=== PATIENT | male | born 1965 ===

== ENCOUNTER 2021-05-23 13:01 | Inpatient (IN) | payer MEDICAID, OTHER ==
[~2021-05-23] VITALS: Ht 172.7 cm; Wt 110.0 kg
[2021-05-23 14:18] LABS: Basophils # (auto) 0.1 10 ^3/uL (0-0.2); Basophils % (auto) 0.7 % (0.0-2.0); Eosinophils # (auto) 0.1 10 ^3/uL (0-0.8); Eosinophils % (auto) 0.9 % (0.0-7.0); Hematocrit 43.2 % (41.0-53.0); Hemoglobin 14.8 g/dL (13.5-17.5); Lymphocytes # (auto) 2.2 10 ^3/uL (0.4-5.4); Lymphocytes % (auto) 28.9 % (10.0-50.0); Mean Corpuscular Hemoglobin 29.7 pg (28.0-32.0); Mean Corpuscular Hgb Conc. 34.4 g/dL (32.0-36.0); Mean Corpuscular Volume 86.5 fL (80.0-100.0); Monocytes # (auto) 1.3 10 ^3/uL (0-1.3); Monocytes % (auto) 16.7 % (0.0-12.0); Neutrophils % (auto) 52.8 % (37.0-80.0); Nucleated Red Blood Cells % 0.1 %; Red Blood Cells 4.99 10^6/uL (4.5-5.90); Red Cell Distribution Width 12.7 % (11.8-14.3); White Blood Cell 7.5 10^3/uL (4.4-10.8)
[2021-05-23 14:37] LABS: Albumin 3.9 g/dL (3.4-5.0); Anion Gap 8 (5-15); Blood Urea Nitrogen 18 mg/dL (7-18); Calcium 9.6 mg/dL (8.5-10.1); Carbon Dioxide 24 mmol/L (21-32); Chloride 100 mmol/L (98-107); Glucose 214 mg/dL (74-106); Magnesium 2.5 mg/dL (1.6-2.6); Potassium 3.9 mmol/L (3.5-5.1); Sodium 132 mmol/L (136-145)
[2021-05-23 14:44] LABS: Alanine Aminotransferase 82 U/L (16-61); Alkaline Phosphatase 66 U/L (45-117); Aspartate Aminotransferase 77 U/L (15-37); BUN/Creatinine Ratio 12.6; Bilirubin, Total 0.3 mg/dL (0.2-1.0); GFR African American 66 mL/min; GFR Non-African American 54 mL/min; Total Protein 8.8 g/dL (6.4-8.2)
[2021-05-23] MEDS ORDERED: ONDANSETRON HCL 4 MG/2 ML VIAL IV PRN (17:30)
[2021-05-23] MEDS ORDERED: LORazepam 0.5 MG TAB PO PRN (17:30)
[2021-05-23] MEDS ORDERED: ACETAMINOPHEN 500 MG TAB PO PRN ×2 (17:30→19:00)
[2021-05-23] MEDS ORDERED: DOCUSATE CALCIUM 240 MG CAP PO PRN (17:30)
[2021-05-23] MEDS ORDERED: MORPHINE SULFATE INJECTION 2 MG/ML SYRG IV PRN ×2 (17:30)
[2021-05-23] MEDS ORDERED: LABETALOL HCL 5 MG/ML 4ML SYRINGE IV PRN (17:30)
[2021-05-23] MEDS ORDERED: NITROGLYCERIN 0.4 MG SL TAB SL PRN (17:30)
[2021-05-23] MEDS ORDERED: DEXTROSE (50%) 50ML SYRG IV PRN (17:30)
[2021-05-23] MEDS ORDERED: SODIUM CHLORIDE 0.9% 1,000 ML IV ONE (17:30)
[2021-05-23] MEDS: SODIUM CHLORIDE 0.9% 1,000 ML IV SCH (19:51)
[2021-05-23] MEDS: InsuLIN REG 1unit/0.01ml Soln (100units/ml) SC SCH ×2 (20:00→22:36)
[2021-05-23 20:04] LABS: Thyroid Stimulating Hormone 1.62 uIU/mL (0.358-3.74)
[2021-05-23] MEDS: ACCU-CHEK COMFORT CURVE STRIP VI SCH ×2 (20:09→22:36)
[2021-05-23 21:10] LABS: Urine WBC None Seen /hpf (0 - 3)
[2021-05-23 21:28] LABS: Urine Bacteria NONE SEEN /hpf (None Seen); Urine Blood Negative /uL (Negative); Urine Hyaline Cast FEW /lpf (0 - 2); Urine Mucus FEW (None Seen); Urine Specific Gravity 1.009 (1.001-1.035)
[2021-05-23 22:30] VITALS: BP 159/80
[2021-05-23] MEDS: ATORVASTATIN 20 MG TAB PO SCH (22:35)
[2021-05-23] MEDS: INSULIN LANTUS (GLARGINE) 1 /0.01ml (100units/ml) SC SCH (22:36)
[2021-05-23] MEDS: BUDESONIDE (INHALATION) 180 MCG IH IN SCH (22:54)
[2021-05-23] MEDS ORDERED: LOSA-69 PO (23:12)
[2021-05-23] MEDS ORDERED: METF-370 PO (23:12)
[2021-05-23] MEDS ORDERED: HYDR25TA5 PO (23:12)
[2021-05-23] MEDS ORDERED: AMLO-489 PO (23:12)
[2021-05-23] MEDS ORDERED: GEMF600T PO (23:12)
[2021-05-23] MEDS ORDERED: GLIM2TAB PO (23:12)
[2021-05-24] MEDS: InsuLIN REG 1unit/0.01ml Soln (100units/ml) SC SCH ×6 (04:10→22:24)
[2021-05-24] MEDS: ACCU-CHEK COMFORT CURVE STRIP VI SCH ×6 (04:10→22:24)
[2021-05-24 04:30] VITALS: BP 139/63
[2021-05-24] MEDS: SODIUM CHLORIDE 0.9% 1,000 ML IV SCH ×2 (05:24→20:12)
[2021-05-24] MEDS ORDERED: HYDROcodone-ACET 5/325MG TAB PO PRN (05:45)
[2021-05-24 05:54] LABS: Basophils # (auto) 0 10 ^3/uL (0-0.2); Basophils % (auto) 0.5 % (0.0-2.0); Eosinophils # (auto) 0.1 10 ^3/uL (0-0.8); Eosinophils % (auto) 1.1 % (0.0-7.0); Hematocrit 38.4 % (41.0-53.0); Hemoglobin 13.6 g/dL (13.5-17.5); Lymphocytes # (auto) 1.9 10 ^3/uL (0.4-5.4); Lymphocytes % (auto) 26.6 % (10.0-50.0); Mean Corpuscular Hemoglobin 30.4 pg (28.0-32.0); Mean Corpuscular Hgb Conc. 35.5 g/dL (32.0-36.0); Mean Corpuscular Volume 85.7 fL (80.0-100.0); Monocytes # (auto) 1.1 10 ^3/uL (0-1.3); Monocytes % (auto) 14.6 % (0.0-12.0); Neutrophils # (auto) 4.2 10 ^3/uL (1.6-8.6); Neutrophils % (auto) 57.2 % (37.0-80.0); Nucleated Red Blood Cells % 0.1 %; Red Blood Cells 4.48 10^6/uL (4.5-5.90); Red Cell Distribution Width 12.4 % (11.8-14.3); White Blood Cell 7.3 10^3/uL (4.4-10.8)
[2021-05-24 05:55] LABS: INR 1.1 (0.9-1.15)
[2021-05-24 05:57] LABS: Albumin 3.3 g/dL (3.4-5.0); Calcium 8.6 mg/dL (8.5-10.1); Chloride 103 mmol/L (98-107); Potassium 3.7 mmol/L (3.5-5.1); Sodium 135 mmol/L (136-145)
[2021-05-24 06:00] LABS: Alanine Aminotransferase 80 U/L (16-61); Anion Gap 8 (5-15); Aspartate Aminotransferase 67 U/L (15-37); BUN/Creatinine Ratio 14.7; Blood Urea Nitrogen 15 mg/dL (7-18); Carbon Dioxide 24 mmol/L (21-32); GFR African American 97 mL/min; GFR Non-African American 80 mL/min; Glucose 169 mg/dL (74-106)
[2021-05-24 06:05] LABS: Alkaline Phosphatase 58 U/L (45-117); Bilirubin, Total 0.2 mg/dL (0.2-1.0); Total Protein 7.6 g/dL (6.4-8.2)
[2021-05-24] MEDS: BUDESONIDE (INHALATION) 180 MCG IH IN SCH ×2 (06:39→22:26)
[2021-05-24] MEDS: ALBUTEROL SULF HFA 90MCG INH 200DOSE IN PRN ×2 (06:39→22:26)
[2021-05-24] MEDS: AZITHROMYCIN 500MG/ 250ML 250 ML IV SCH (08:55)
[2021-05-24] MEDS: ZINC SULFATE 220mg CAP or TAB PO SCH (08:56)
[2021-05-24] MEDS: PANTOPRAZOLE 40 MG TAB PO SCH (08:56)
[2021-05-24] MEDS: METOPROLOL SUCCINATE XL 50 MG TAB PO SCH (08:57)
[2021-05-24] MEDS: ASCORBIC ACID 1,000 MG TAB PO SCH (08:57)
[2021-05-24] MEDS: CHOLECALCIFEROL (VITD3) 2,000 UNIT CAP/TAB PO SCH (08:57)
[2021-05-24 09:00] VITALS: BP 124/68
[2021-05-24] MEDS: ENOXAPARIN SOD 40 MG/0.4 ML SYRINGE SC SCH (10:20)
[2021-05-24 13:00] VITALS: BP 144/72
[2021-05-24 17:00] VITALS: BP 144/72
[2021-05-24 21:53] VITALS: BP 144/68
[2021-05-24] MEDS: ATORVASTATIN 20 MG TAB PO SCH (22:23)
[2021-05-24] MEDS: INSULIN LANTUS (GLARGINE) 1 /0.01ml (100units/ml) SC SCH (22:24)
[2021-05-25] MEDS: InsuLIN REG 1unit/0.01ml Soln (100units/ml) SC SCH ×6 (04:00→22:17)
[2021-05-25] MEDS: ACCU-CHEK COMFORT CURVE STRIP VI SCH ×6 (04:02→22:16)
[2021-05-25 05:39] VITALS: BP 132/78
[2021-05-25 06:07] LABS: Basophils # (auto) 0 10 ^3/uL (0-0.2); Basophils % (auto) 0.6 % (0.0-2.0); Eosinophils # (auto) 0.2 10 ^3/uL (0-0.8); Eosinophils % (auto) 2.7 % (0.0-7.0); Hematocrit 39.7 % (41.0-53.0); Hemoglobin 13.7 g/dL (13.5-17.5); Lymphocytes # (auto) 2.8 10 ^3/uL (0.4-5.4); Lymphocytes % (auto) 44.4 % (10.0-50.0); Mean Corpuscular Hemoglobin 29.5 pg (28.0-32.0); Mean Corpuscular Hgb Conc. 34.5 g/dL (32.0-36.0); Mean Corpuscular Volume 85.6 fL (80.0-100.0); Monocytes # (auto) 0.7 10 ^3/uL (0-1.3); Monocytes % (auto) 11.7 % (0.0-12.0); Neutrophils # (auto) 2.6 10 ^3/uL (1.6-8.6); Neutrophils % (auto) 40.6 % (37.0-80.0); Nucleated Red Blood Cells % 0.1 %; Red Blood Cells 4.64 10^6/uL (4.5-5.90); Red Cell Distribution Width 12.4 % (11.8-14.3); White Blood Cell 6.3 10^3/uL (4.4-10.8)
[2021-05-25 06:25] LABS: Potassium 3.6 mmol/L (3.5-5.1)
[2021-05-25] MEDS: BUDESONIDE (INHALATION) 180 MCG IH IN SCH ×2 (06:36→21:38)
[2021-05-25] MEDS: ALBUTEROL SULF HFA 90MCG INH 200DOSE IN PRN ×2 (06:36→21:38)
[2021-05-25] MEDS: SODIUM CHLORIDE 0.9% 1,000 ML IV SCH ×3 (08:10→10:07)
[2021-05-25] MEDS: AZITHROMYCIN 500MG/ 250ML 250 ML IV SCH (09:00)
[2021-05-25] MEDS: ZINC SULFATE 220mg CAP or TAB PO SCH (09:00)
[2021-05-25] MEDS: CHOLECALCIFEROL (VITD3) 2,000 UNIT CAP/TAB PO SCH (09:01)
[2021-05-25] MEDS: ASCORBIC ACID 1,000 MG TAB PO SCH (09:01)
[2021-05-25] MEDS: PANTOPRAZOLE 40 MG TAB PO SCH (09:01)
[2021-05-25] MEDS: ENOXAPARIN SOD 40 MG/0.4 ML SYRINGE SC SCH (09:02)
[2021-05-25] MEDS: METOPROLOL SUCCINATE XL 50 MG TAB PO SCH (10:08)
[2021-05-25 10:24] VITALS: BP 138/73
[2021-05-25 13:10] VITALS: BP 134/70
[2021-05-25] MEDS ORDERED: AMIODARONE HCL 150 MG in D5W 5% 100 ML IV ONE (16:45)
[2021-05-25] MEDS ORDERED: AMIODARONE 450mg/250ml AE 250 ML IV SCH ×4 (17:00→23:00)
[2021-05-25 17:33] LABS: BUN/Creatinine Ratio 13.5; Calcium 8.8 mg/dL (8.5-10.1); Magnesium 2.3 mg/dL (1.6-2.6); Potassium 4.1 mmol/L (3.5-5.1)
[2021-05-25 22:00] VITALS: BP_SYST 134; BP_SYST 148; BP_DIAS 65
[2021-05-25] MEDS: ATORVASTATIN 20 MG TAB PO SCH (22:13)
[2021-05-25] MEDS: INSULIN LANTUS (GLARGINE) 1 /0.01ml (100units/ml) SC SCH (22:16)
[2021-05-26] MEDS: InsuLIN REG 1unit/0.01ml Soln (100units/ml) SC SCH ×6 (04:00→23:58)
[2021-05-26] MEDS: ACCU-CHEK COMFORT CURVE STRIP VI SCH ×6 (04:10→23:58)
[2021-05-26 04:55] VITALS: BP 121/63
[2021-05-26 05:20] VITALS: BP 121/63
[2021-05-26] MEDS: ALBUTEROL SULF HFA 90MCG INH 200DOSE IN PRN ×2 (06:33→20:29)
[2021-05-26] MEDS: BUDESONIDE (INHALATION) 180 MCG IH IN SCH ×2 (06:33→20:29)
[2021-05-26] MEDS: AZITHROMYCIN 500MG/ 250ML 250 ML IV SCH (08:23)
[2021-05-26] MEDS: ZINC SULFATE 220mg CAP or TAB PO SCH (08:25)
[2021-05-26] MEDS: PANTOPRAZOLE 40 MG TAB PO SCH (08:25)
[2021-05-26] MEDS: METOPROLOL SUCCINATE XL 50 MG TAB PO SCH (08:26)
[2021-05-26] MEDS: CHOLECALCIFEROL (VITD3) 2,000 UNIT CAP/TAB PO SCH (08:27)
[2021-05-26] MEDS: ASCORBIC ACID 1,000 MG TAB PO SCH (08:27)
[2021-05-26] MEDS: ENOXAPARIN SOD 40 MG/0.4 ML SYRINGE SC SCH (08:28)
[2021-05-26 09:00] VITALS: BP 144/73
[2021-05-26 13:00] VITALS: BP 146/76
[2021-05-26 17:00] VITALS: BP 142/75
[2021-05-26] MEDS: ATORVASTATIN 20 MG TAB PO SCH (21:04)
[2021-05-26] MEDS: INSULIN LANTUS (GLARGINE) 1 /0.01ml (100units/ml) SC SCH (21:07)
[2021-05-26 22:00] VITALS: BP 148/65
[2021-05-27] MEDS: InsuLIN REG 1unit/0.01ml Soln (100units/ml) SC SCH ×5 (04:00→15:01)
[2021-05-27] MEDS: ACCU-CHEK COMFORT CURVE STRIP VI SCH ×5 (04:00→15:02)
[2021-05-27 05:32] VITALS: BP 128/70
[2021-05-27] MEDS: ALBUTEROL SULF HFA 90MCG INH 200DOSE IN PRN (06:34)
[2021-05-27] MEDS: BUDESONIDE (INHALATION) 180 MCG IH IN SCH (06:34)
[2021-05-27 09:00] VITALS: BP 150/78
[2021-05-27] MEDS: ZINC SULFATE 220mg CAP or TAB PO SCH (09:34)
[2021-05-27] MEDS: AZITHROMYCIN 500MG/ 250ML 250 ML IV SCH (09:34)
[2021-05-27] MEDS: PANTOPRAZOLE 40 MG TAB PO SCH (09:34)
[2021-05-27] MEDS: METOPROLOL SUCCINATE XL 50 MG TAB PO SCH (09:35)
[2021-05-27] MEDS: CHOLECALCIFEROL (VITD3) 2,000 UNIT CAP/TAB PO SCH (09:36)
[2021-05-27] MEDS: ENOXAPARIN SOD 40 MG/0.4 ML SYRINGE SC SCH (09:36)
[2021-05-27] MEDS: ASCORBIC ACID 1,000 MG TAB PO SCH (09:36)
[2021-05-27 13:00] VITALS: BP 150/70
[2021-05-27 16:51] VITALS: BP 121/67
[2021-05-27 16:53] VITALS: BP 130/74
[2021-05-27 16:59] VITALS: BP 132/77
== END 2021-05-27 18:00 | disposition home or self-care (01) | DRG 137 ==
LOC: EDBD 13:01 → ER 13:01 → TELE 17:44 → TELE-EAST 21:58
PROVIDERS: ADMIT Family Medicine; ATTEND Internal Medicine
DX: U07.1 COVID-19 (principal); N17.0 Acute kidney failure with tubular necrosis; E11.65 Type 2 diabetes mellitus with hyperglycemia; G89.29 Other chronic pain; I10 Essential (primary) hypertension
CPT/HCPCS: 36415; 71045; 71046; 73030; 80048; 80053; 81001; 82043; 82306; 82728; 82962; 83036; 83605; 83615; 83735; 83880; 84132; 84443; 84484; 85025; 85379; 85610; 86141; 87040; 87426; 93005; 93306; 94640; 96361; 96374; G0378; J1815; J3490; J7060

== ENCOUNTER → 2021-10-16 | Outpatient (CLI) | payer MEDICAID ==
[~2021-10-16] MED LIST: AMLO-489 PO; GEMF600T PO; GLIM2TAB PO; HYDR25TA5 PO; LOSA-69 PO; METF-370 PO
[2021-10-16 11:23] LABS: Albumin 3.7 g/dL (3.4-5.0); Potassium 3.7 mmol/L (3.5-5.1)
[2021-10-16 11:26] LABS: Basophils # (auto) 0.1 10 ^3/uL (0-0.2); Basophils % (auto) 0.7 % (0.0-2.0); Eosinophils # (auto) 0.2 10 ^3/uL (0-0.8); Eosinophils % (auto) 2.9 % (0.0-7.0); Hematocrit 39.9 % (41.0-53.0); Lymphocytes # (auto) 3.1 10 ^3/uL (0.4-5.4); Lymphocytes % (auto) 39.3 % (10.0-50.0); Mean Corpuscular Hemoglobin 29.6 pg (28.0-32.0); Mean Corpuscular Hgb Conc. 35.1 g/dL (32.0-36.0); Mean Corpuscular Volume 84.1 fL (80.0-100.0); Monocytes # (auto) 0.6 10 ^3/uL (0-1.3); Monocytes % (auto) 7.2 % (0.0-12.0); Neutrophils # (auto) 3.9 10 ^3/uL (1.6-8.6); Neutrophils % (auto) 49.9 % (37.0-80.0); Nucleated Red Blood Cells % 0.2 %; Red Blood Cells 4.75 10^6/uL (4.5-5.90); Red Cell Distribution Width 12.1 % (11.8-14.3); White Blood Cell 7.8 10^3/uL (4.4-10.8)
[2021-10-16 11:31] LABS: BUN/Creatinine Ratio 18.3; Bilirubin, Total 0.3 mg/dL (0.2-1.0); Calcium 9.4 mg/dL (8.5-10.1); Total Protein 7.9 g/dL (6.4-8.2)
== END | disposition home or self-care (01) ==
LOC: LAB 10:30
PROVIDERS: ATTEND Student in an Organized Health Care Education/Training Program
DX: Z00.01 Encounter for general adult medical examination with abnormal findings (principal)
CPT/HCPCS: 36415; 80053; 80061; 82274; 82306; 83036; 85025

== ENCOUNTER → 2022-08-24 | Outpatient (CLI) | payer MEDICAID | END | disposition home or self-care (01) | LOC: LAB 14:51 | PROVIDERS: ATTEND Student in an Organized Health Care Education/Training Program | DX: E11.42 Type 2 diabetes mellitus with diabetic polyneuropathy (principal) | CPT/HCPCS: 36415; 83036 ==

== ENCOUNTER → 2023-08-30 | Outpatient (CLI) | payer MEDICAID ==
[~2023-08-30] MED LIST changes: -AMLO-489 PO; +AMLO1TAB22 PO; -LOSA-69 PO; +LOSA50TA46 PO
[2023-08-30 13:34] LABS: Basophils # (auto) 0.1 10 ^3/uL (0-0.2); Basophils % (auto) 0.8 % (0.0-2.0); Eosinophils # (auto) 0.4 10 ^3/uL (0-0.8); Eosinophils % (auto) 5.2 % (0.0-7.0); Hematocrit 41.2 % (41.0-53.0); Hemoglobin 14.4 g/dL (13.5-17.5); Lymphocytes # (auto) 2.9 10 ^3/uL (0.4-5.4); Lymphocytes % (auto) 34.3 % (10.0-50.0); Mean Corpuscular Hemoglobin 29.8 pg (28.0-32.0); Mean Corpuscular Volume 85.2 fL (80.0-100.0); Monocytes % (auto) 12.3 % (0.0-12.0); Neutrophils % (auto) 47.4 % (37.0-80.0); Red Blood Cells 4.84 10^6/uL (4.5-5.90); Red Cell Distribution Width 12.5 % (11.8-14.3); White Blood Cell 8.5 10^3/uL (4.4-10.8)
[2023-08-30 13:44] LABS: Alanine Aminotransferase 51 U/L (7-40); Alkaline Phosphatase 65 U/L (46-116); Anion Gap 5 (5-15); BUN/Creatinine Ratio 5.8 (10.0-20.0); Blood Urea Nitrogen 5 mg/dL (9-23); Calcium 9.5 mg/dL (8.5-10.1); Carbon Dioxide 32 mmol/L (20-30); Chloride 99 mmol/L (98-107); Glucose 157 mg/dL (74-106); LDL Cholesterol 29 mg/dL (< 100); Potassium 3.8 mmol/L (3.5-5.1); Sodium 136 mmol/L (136-145); Triglycerides 115 mg/dL (< 150)
[2023-08-30 13:45] LABS: Albumin 4.4 g/dL (3.2-4.8); Aspartate Aminotransferase 35 U/L (13-40); Bilirubin, Total 0.4 mg/dL (0.2-1.0); Cholesterol 74 mg/dL (< 200); HDL Cholesterol 31 mg/dL (40-59)
== END | disposition home or self-care (01) ==
LOC: LAB 12:53
PROVIDERS: ATTEND Student in an Organized Health Care Education/Training Program
DX: E11.42 Type 2 diabetes mellitus with diabetic polyneuropathy (principal); E66.01 Morbid (severe) obesity due to excess calories; E78.5 Hyperlipidemia, unspecified; I10 Essential (primary) hypertension
CPT/HCPCS: 36415; 80053; 80061; 83036; 85025